=== PATIENT | male | born 2000 | race Caucasian/White ===

== ENCOUNTER 2021-05-19 00:23 | Emergency (ER) | payer BC ==
[~2021-05-19] VITALS: Ht 177.8 cm; Wt 90.7 kg
[2021-05-19 00:35] VITALS: BP_SYST 176
--- NOTE | 2021-05-19 00:35 | NUR ---
Patient to ER bed 3 to gown for evaluation. Side rails up.
--- NOTE | 2021-05-19 00:40 | NUR ---
DR. NARANJO AT BEDSIDE FOR EVALUATION.
--- NOTE | 2021-05-19 00:45 | NUR ---
PATIENT AAOX4 AND AMBULATORY C/O HEADACHE THAT HAS BEEN INTERMITTENT X 2 MONTHS. WOKE UP WITH EXRUCIATING PAIN FROM NECK TOWARDS FRONT OF HEAD. DENIES ANY VISION CHANGES. DENIES ANY TRAUMA. VSS. CURRENLY STATING 6/10 ON THE PAIN SCALE. NOW STATES HAVING LUMP IN BACK OF HEAD.
[2021-05-19 00:49] VITALS: BP_SYST 176
--- NOTE | 2021-05-19 00:51 | NUR ---
pt verbalizes dc instructions. no acute distress noted. stable on dc.
== END 2021-05-19 00:49 | disposition home or self-care (01) ==
LOC: SED 00:23
DX: L72.3 Sebaceous cyst (principal); J45.909 Unspecified asthma, uncomplicated
CPT/HCPCS: 99281